=== PATIENT | female | born 1950 | race Caucasian/White ===

== ENCOUNTER 2021-11-03 22:45 | Observation (INO) ==
[2021-11-03] MEDS ORDERED: SODIUM CHLORIDE 0.9% 1000ML 1,000 ML IV SCH (23:00)
--- NOTE | 2021-11-03 23:06 | Emergency Department Note ---
Impression & Plan Diabetes mellitus with hyperosmolarity without hyperglycemic hyperosmolar nonketotic coma Admit ED Provider Note HPI: The patient is a 71-year-old female with history of hypertension, presents to the emergency department with a chief complaint of recurrent episodes of dizziness. Patient states that over the past 1 to 2 months she has had several episodes of dizziness every week. Patient states they usually occur at night. Patient states that she is unsure for how long they last usually just goes back to sleep. Patient states she is in town visiting her daughter and had another episode tonight, states that she laid down to bed around 8 PM and then around 9 PM she woke up with a sensation of dizziness. Patient states that she does get ambulatory dysfunction and ataxia with this sensation. Patient states that by time she arrived here to the ED she is feeling improved. On arrival the patient does not have any focal deficits, she has no ataxia on [id number] testing bilaterally, denies any nausea. She is noted to be hypotensive on arrival at 81/47 but is otherwise hemodynamically stable and saturating well on room air. ROS: -Neuro: Transient dizziness *10 point review systems was conducted and is otherwise negative unless stated above *Outpatient medications and allergy history reviewed PE: General: Alert, NAD HEENT: Normocephalic, atraumatic Eyes: Extraocular eye movement is intact, no scleral erythema Pulmonary: Clear to auscultation bilaterally, no wheezing Cardio: Regular rate and rhythm GI: Abdomen is soft, nontender : No suprapubic tenderness MSK: No evidence of trauma or malformation of the extremities, no edema Skin: No evidence of rash Neuro: Alert, no focal deficits, no ataxia on [id number] testing bilaterally Psychiatric: Cooperative color television console monitor: - An order was placed for continuous cardiac monitoring - Patient was noted to be in sinus rhythm with rate of 63 EKG: Rate: 65 Rhythm: Normal sinus rhythm Intervals: QTC 501 ms, otherwise within normal limits ST changes: No ST elevation Time: 2300 Medical Decision Making: Patient presented to the emergency department with an episode of dizziness. Patient tells me this has been happening intermittently for about the past month or possibly more. Patient's daughter at the bedside states that she used her glucometer on her mother this evening when she was complaining of dizziness and the blood sugar reading was "high". Patient does not have any reported history of diabetes. Patient does not have any focal deficits on arrival, IV was established, lab work obtained, lab work does show evidence of a hyperosmolar hyperglycemic nonketotic state, blood sugars approximately 760, pseudohyponatremia at 124. Potassium is 3.1, oral and IV repletion are ordered. Patient does have a slight elevation in her creatinine at 1.57, unknown baseline, patient is here visiting her daughter from out of town. CT imaging of the head was obtained that per my interpretation shows no evidence of any obvious intracranial abnormality. Stat rad radiology read is currently pending at the time of admission. Patient's mentation is clear. I discussed all the above findings with the patient and her daughter at the bedside, they are in agreement for admission, insulin drip was ordered at 0.1U/kg/hr without bolus, will plan to start insulin drip when serum potassium is at least 3.3, patient is in for agreement for admission and she was admitted in stable condition. * CRITICAL CARE TIME: 45 min -Stabilization of HHNK with blood sugar of 759 requiring initiation of insulin drip for stabilization, time spent at the bedside, interpretation of diagnostic studies, discussion with other physicians and arrangement of admission Diagnosis: 1. Hyperosmolar hyperglycemic nonketotic state 2. Dizziness 3. Elevated creatinine Disposition: Admission Preet Pérez DO Emergency Medicine Past Med/Surg History Medical History (Updated 11/04/21 @ 00:28 by Mauricio Mulligan MD) Hypertension Social History Smoking Status: Never smoker Preferred Language: Malay Feels Safe at Home: Yes Allergies Allergies Allergy/AdvReac Type Severity Reaction Status Date / Time Sulfa (Sulfonamide Allergy Unknown HAPPENED Verified 11/03/21 23:53 Antibiotics) A CHILD Home Meds Home Medications Medication Instructions Recorded Confirmed albuterol sulfate 90 mcg/actuation 2 puff INHALATION DIRECTED PRN 11/03/21 11/03/21 aerosol inhaler (Ventolin HFA) citalopram 40 mg tablet (Celexa) 40 mg PO DAILY 11/03/21 11/03/21 docusate sodium 100 mg capsule 100 mg PO BID PRN 11/03/21 11/03/21 (Colace) famotidine 40 mg tablet (Pepcid) 40 mg PO HS 11/03/21 11/03/21 fluticasone propionate 110 1 puff INHALATION BID PRN 11/03/21 11/03/21 mcg/actuation HFA aerosol inhaler (Flovent HFA) fluticasone propionate 50 2 spray INTRANASAL DAILY PRN 11/03/21 11/03/21 mcg/actuation nasal spray,suspension gabapentin 300 mg capsule 300 mg PO TID 11/03/21 11/03/21 losartan 50 mg-hydrochlorothiazide 1 tab PO DAILY 11/03/21 11/03/21 12.5 mg tablet metoprolol tartrate 50 mg tablet 50 mg PO BID 11/03/21 11/03/21 prednisone 10 mg tablet 10 mg PO DAILY PRN 11/03/21 11/03/21 rosuvastatin 20 mg tablet 20 mg PO DAILY 11/03/21 11/03/21 tizanidine 4 mg tablet 4 mg PO Q8H PRN 11/03/21 11/03/21 Results & Data (ED) Vital Signs Vital Signs - 24 hr 11/03/21 22:46 11/03/21 23:31 11/03/21 23:42 Temperature 35.6 C L Temperature Source Temporal Artery Scan Pulse Rate 63 Pulse Rate [Finger] 60 Pulse Rhythm [Finger] Regular Pulse Strength [Finger] Normal Respiratory Rate 20 22 Respiratory Effort / Characteristics Non-Labored Respiratory Depth Normal Blood Pressure 81/47 L Blood Pressure [Right Arm] 105/53 L Blood Pressure Mean 58 Blood Pressure Mean [Right Arm] 70 Blood Pressure Position [Right Arm] Sitting Pulse Oximetry 92 96 93 Oxygen Delivery Method Room Air Room Air Room Air Sepsis Recent Fever Within 48 Hours No Sepsis New/Unexplained Change in Mental Status Yes Sepsis Action Taken by Nursing No Action Required Laboratory Data Result diagrams: 11/03/21 23:09 11/03/21 23:09 Lab Results 11/03/21 11/03/21 11/03/21 Range/Units 22:52 23:09 23:09 WBC 9.58 (4.8-10.8) K/uL RBC 4.65 (4.2-5.4) M/uL Hgb 13.0 (12.0-16.0) g/dL Hct 40.0 (37-47) % MCV 86.0 (80-100) fL MCH 28.0 (25-34) pg MCHC 32.5 (32-36) g/dL RDW Std Deviation 45.3 (36.4-46.3) fL RDW Coeff of Amrit 14.5 (11.5-14.5) % Plt Count 332 (130-400) K/uL MPV 11.3 H (7.4-10.4) fL Immature Gran % (Auto) 0.3 % Neut % (Auto) 77.5 % Lymph % (Auto) 13.5 % [place] % (Auto) 6.9 % Eos % (Auto) 1.6 % Baso % (Auto) 0.2 % Neut # (Auto) 7.43 H (1.4-6.5) K/uL Lymph # (Auto) 1.29 (1.2-3.4) K/uL [place] # (Auto) 0.66 H (0.11-0.59) K/uL Eos # (Auto) 0.15 (0-0.5) K/uL Baso # (Auto) 0.02 (0-0.2) K/uL Immature Gran # (Auto) 0.03 H (0.00-0.02) K/uL PT 10.0 (9.0-12.0) Seconds INR 0.9 (0.9-1.1) APTT 25.7 (21.0-31.0) Seconds PTT Ratio 0.9 Sodium (136-145) mmol/L Potassium (3.5-5.1) mmol/L Chloride (98-107) mmol/L Carbon Dioxide (21-32) mmol/L Anion Gap (3-11) BUN (6-23) mg/dl Creatinine (0.6-1.2) mg/dl Est Cr Clr Drug Dosing ml/min Est GFR ( Amer) ml/min Est GFR (Non-Af Amer) ml/min BUN/Creatinine Ratio (10-20) Glucose (70-99(Fasting)) mg/dl POC Glucose > 600 H* (70-99) mg/dl Calcium (8.5-10.1) mg/dl Total Bilirubin (0.2-1.0) mg/dl AST (13-39) U/L ALT (7-52) U/L Alkaline Phosphatase (34-104) U/L Troponin I High Sens (0-14) pg/ml Total Protein (6.0-8.3) gm/dl Albumin (3.4-5.0) gm/dl Globulin (2.5-4.0) gm/dl Albumin/Globulin Ratio (0.9-2) 11/03/21 Range/Units 23:09 WBC (4.8-10.8) K/uL RBC (4.2-5.4) M/uL Hgb (12.0-16.0) g/dL Hct (37-47) % MCV (80-100) fL MCH (25-34) pg MCHC (32-36) g/dL RDW Std Deviation (36.4-46.3) fL RDW Coeff of Amrit (11.5-14.5) % Plt Count (130-400) K/uL MPV (7.4-10.4) fL Immature Gran % (Auto) % Neut % (Auto) % Lymph % (Auto) % [place] % (Auto) % Eos % (Auto) % Baso % (Auto) % Neut # (Auto) (1.4-6.5) K/uL Lymph # (Auto) (1.2-3.4) K/uL [place] # (Auto) (0.11-0.59) K/uL Eos # (Auto) (0-0.5) K/uL Baso # (Auto) (0-0.2) K/uL Immature Gran # (Auto) (0.00-0.02) K/uL PT (9.0-12.0) Seconds INR (0.9-1.1) APTT (21.0-31.0) Seconds PTT Ratio Sodium 124 L (136-145) mmol/L Potassium 3.1 L (3.5-5.1) mmol/L Chloride 82 L (98-107) mmol/L Carbon Dioxide 31 (21-32) mmol/L Anion Gap 11 (3-11) BUN 19 (6-23) mg/dl Creatinine 1.57 H (0.6-1.2) mg/dl Est Cr Clr Drug Dosing 35.3 ml/min Est GFR ( Amer) 38.6 ml/min Est GFR (Non-Af Amer) 33.3 ml/min BUN/Creatinine Ratio 12.1 (10-20) Glucose 759 H* (70-99(Fasting)) mg/dl POC Glucose (70-99) mg/dl Calcium 8.9 (8.5-10.1) mg/dl Total Bilirubin 0.8 (0.2-1.0) mg/dl AST 27 (13-39) U/L ALT 35 (7-52) U/L Alkaline Phosphatase 71 (34-104) U/L Troponin I High Sens 5.3 (0-14) pg/ml Total Protein 6.6 (6.0-8.3) gm/dl Albumin 3.9 (3.4-5.0) gm/dl Globulin 2.7 (2.5-4.0) gm/dl Albumin/Globulin Ratio 1.4 (0.9-2) Administered Medications Discontinued Medications Sodium Chloride (Nss 1000ml) 1,000 mls @ 999 mls/hr IV .Q1H1M MARION Stop: 11/04/21 00:00 Last Infusion: 11/04/21 00:20 Dose: 0 mls/hr Documented by: [id number] Admin: 11/03/21 23:12 Dose: 999 mls/hr Documented by: [id number] Discharge Plan Visit Data Chief Complaint: Dizziness Stated Complaint: DIZZY ED Provider: Preet Pérez Discharge Problem: Diabetes mellitus with hyperosmolarity without hyperglycemic hyperosmolar nonketotic coma Patient Disposition: Admitted As Inpatient Forms Stand Alone Forms: [facility] Prescriptions Prescriptions: No Action prednisone 10 mg Tablet 10 mg PO DAILY PRN (Reason: ARTHRITIS FLARE UPS) RF: 0 citalopram [Celexa] 40 mg Tablet 40 mg PO DAILY RF: 0 tizanidine 4 mg Tablet 4 mg PO Q8H PRN (Reason: MUSCLE SPASMS) RF: 0 famotidine [Pepcid] 40 mg Tablet 40 mg PO HS RF: 0 metoprolol tartrate 50 mg Tablet 50 mg PO BID RF: 0 docusate sodium [Colace] 100 mg Capsule 100 mg PO BID PRN (Reason: Constipation) RF: 0 gabapentin 300 mg Capsule 300 mg PO TID RF: 0 albuterol sulfate [Ventolin HFA] 90 mcg/actuation Hfa Aerosol Inhaler 2 puff INHALATION DIRECTED PRN (Reason: Shortness Of Breath Or Wheezing) RF: 0 losartan-hydrochlorothiazide 50-12.5 mg Tablet 1 tab PO DAILY RF: 0 fluticasone propionate [Flonase] 50 mcg/actuation [place],Suspension 2 spray INTRANASAL DAILY PRN (Reason: Congestion) RF: 0 fluticasone propionate [Flovent HFA] 110 mcg/actuation Hfa Aerosol Inhaler 1 puff INHALATION BID PRN (Reason: Shortness Of Breath Or Wheezing) RF: 0 rosuvastatin 20 mg Tablet 20 mg PO DAILY RF: 0 Referrals Referrals: PCP,NO [Primary Care Provider] -
[2021-11-03 23:25] LABS: Basophils # (auto) 0.02 K/uL (0-0.2); Basophils % (auto) 0.2 %; Eosinophils # (auto) 0.15 K/uL (0-0.5); Eosinophils % (auto) 1.6 %; Immature Granulocytes # (auto) 0.03 K/uL (0.00-0.02); Immature Granulocytes % (auto) 0.3 %; Lymphocytes # (auto) 1.29 K/uL (1.2-3.4); Lymphocytes % (auto) 13.5 %; Mean Corpuscular Hgb Conc 32.5 g/dL (32-36); Mean Platelet Volume 11.3 fL (7.4-10.4); Monocytes # (auto) 0.66 K/uL (0.11-0.59); Monocytes % (auto) 6.9 %; Neutrophils # (auto) 7.43 K/uL (1.4-6.5); Neutrophils % (auto) 77.5 %; Platelet Count 332 K/uL (130-400); RDW Coefficient of Variation 14.5 % (11.5-14.5); RDW Standard Deviation 45.3 fL (36.4-46.3); Red Blood Count 4.65 M/uL (4.2-5.4); White Blood Count 9.58 K/uL (4.8-10.8)
[2021-11-03 23:36] LABS: INR 0.9 (0.9-1.1); Partial Thromboplastin Ratio 0.9; Partial Thromboplastin Time 25.7 Seconds (21.0-31.0)
[2021-11-04] LABS: Albumin Globulin Ratio 1.4 (0.9-2); Albumin Level 3.9 gm/dl (3.4-5.0); BUN Creatinine Ratio 12.1 (10-20); Bilirubin,Total 0.8 mg/dl (0.2-1.0); Calcium 8.9 mg/dl (8.5-10.1); Creatinine Clr Calc Pharmacy 35.3 ml/min; Est GFR (African American) 38.6 ml/min; Est GFR (Non-African American) 33.3 ml/min; Globulin 2.7 gm/dl (2.5-4.0); Potassium 3.1 mmol/L (3.5-5.1); Total Protein 6.6 gm/dl (6.0-8.3); Troponin I High Sensitivity 5.3 pg/ml (0-14)
[2021-11-04] MEDS ORDERED: GLUCAGON FOR INJ 1 MG VIAL SQ PRN (00:02)
[2021-11-04] MEDS ORDERED: CARBOHYDRATES FOR HYPOGLYCEMIA PO PRN (00:02)
[2021-11-04] MEDS ORDERED: STAT INSULIN DRIP STA (00:02)
[2021-11-04] MEDS ORDERED: GLUCOSE 10 TABS/TUBE PO PRN (00:02)
[2021-11-04] MEDS ORDERED: DEXTROSE 50% 50 ML SYRINGE IV PRN (00:02)
[2021-11-04] MEDS ORDERED: GLUCOSE 40% GEL 15 GM TUBE PO PRN (00:02)
[2021-11-04] MEDS ORDERED: INSULIN REGULAR 250 UNITS in SODIUM CHLORIDE 0.9% 247.5 ML IV SCH (00:15)
[2021-11-04] MEDS ORDERED: POTASSIUM CHLORIDE CRTAB 20 MEQ TABCR PO STA ×2 (00:22→00:29)
--- NOTE | 2021-11-04 00:28 | History & Physical Report ---
Date of Service November 04, 2021 Assessment & Plan (1) Diabetes mellitus with hyperosmolarity without hyperglycemic hyperosmolar nonketotic coma: Plan: With blood sugar as high as 760 in the ER. No anion gap. Brand new diagnosis for her. - Insulin gtt ordered in the ER; waiting until K+ > 3.3. Repletion ordered, will recheck in 2 hours. - Aggressive IV fluids with electrolyte repletion as needed - Glycemic pharmacy consulted - supervisor maple products consulted - A1c in AM (2) Acute kidney failure: Plan: Presumed with admission Cr at 1.6. Assume some element of pre-renal due to dehydration. No hx of CKD per patient. - Aggressive IV fluids as above - Hold home losartan/HCTZ - Monitor Cr (3) Hyponatremia: Plan: Pseudohyponatremia from hyperglycemia. Corrected Na is 135. - Monitor (4) Hypertension: Plan: BP in the ER was 105/55. - Hold home losartan/HCTZ - Continue home metoprolol - Monitor BP (5) Fibromyalgia: Plan: - Continue SSRI (6) Neuropathy: Plan: Idiopathic neuropathy (though possible diabetic neuropathy given new diagnosis?). Has had EMG in the past with some Carpal Tunnel diagnosed. - Continue home gabapentin (7) Arthritis: Plan: Unknown arthritis. Has small papules on fingers as well as inflamed nail beds. Has been tested for RA and lupus per patient and daughter. - Has not used the prednisone in weeks per patient; had been on prior steroid taper before going to see a air compressor mechanic. - Tylenol PRN (8) GERD (gastroesophageal reflux disease): Plan: - Continue famotidine (9) Asthma: Plan: No wheezing on exam today. - Continue home maintenance inhaler - Albuterol PRN (10) Hyperlipidemia: Plan: - Continue statin (11) DVT prophylaxis: Plan: Heparin 5,000 units SQ BID Full code per patient History of Present Illness Primary Care Provider: NO PCP 71yo F w/ hx of HTN & arthritis who presents with hyperglycemia. She reports that she has been feeling dizzy overnight for about 1-2 months. Her PCP has been changing multiple medications on her. She had an additional BP medication added (her losartan/HCTZ), increased gabapentin for her neuropathy, and also changed her SSRI for her fibromyalgia. She figured all the medication changes were causing the dizziness because it mostly happened at night after she had taken her evening medications. This evening, she had a particularly severe episode. She is visiting her daughter from [place] who checked her blood pressure, and found it to be quite low (~100/55). She then checked the patient's blood sugar with her glucometer and it read "High." Given these results, the patient and daughter came to the ER. The patient reports some additional nocturia, but denies much additional thirst. She denies vision changes. She notes some occasional clammy feeling, but otherwise denies fever. She reports some diffuse, mild abdominal pain and nausea at times, but no vomiting. No shortness of breath, but does have a chronic dry cough that is attributed to her GERD. Allergies Allergy/AdvReac Type Severity Reaction Status Date / Time Sulfa (Sulfonamide Allergy Unknown HAPPENED Verified 11/03/21 23:53 Antibiotics) A CHILD Home Medications Medication Instructions Recorded Confirmed Type albuterol sulfate 90 mcg/actuation 2 puff INHALATION DIRECTED PRN 11/03/21 11/03/21 History aerosol inhaler (Ventolin HFA) citalopram 40 mg tablet (Celexa) 40 mg PO DAILY 11/03/21 11/03/21 History docusate sodium 100 mg capsule 100 mg PO BID PRN 11/03/21 11/03/21 History (Colace) famotidine 40 mg tablet (Pepcid) 40 mg PO HS 11/03/21 11/03/21 History fluticasone propionate 110 1 puff INHALATION BID PRN 11/03/21 11/03/21 History mcg/actuation HFA aerosol inhaler (Flovent HFA) fluticasone propionate 50 2 spray INTRANASAL DAILY PRN 11/03/21 11/03/21 History mcg/actuation nasal spray,suspension gabapentin 300 mg capsule 300 mg PO TID 11/03/21 11/03/21 History losartan 50 mg-hydrochlorothiazide 1 tab PO DAILY 11/03/21 11/03/21 History 12.5 mg tablet metoprolol tartrate 50 mg tablet 50 mg PO BID 11/03/21 11/03/21 History prednisone 10 mg tablet 10 mg PO DAILY PRN 11/03/21 11/03/21 History rosuvastatin 20 mg tablet 20 mg PO DAILY 11/03/21 11/03/21 History tizanidine 4 mg tablet 4 mg PO Q8H PRN 11/03/21 11/03/21 History Past Med/Surg History Medical History Arthritis Asthma Fibromyalgia GERD (gastroesophageal reflux disease) Hyperlipidemia Hypertension Neuropathy Social History Smoking Status: Never smoker Preferred Language: Cape Verdean Feels Safe at Home: Yes Review of Systems Review of Systems: All systems reviewed & are unremarkable except as noted in HPI & below Physical Exam Constitutional: WD/WN, vitals as above Eyes: EOM intact bilaterally; no conjunctival abnormality ENMT: external ear and nose normal, oropharynx normal Neck: trachea midline, no thyromegaly normal visual inspection Respiratory: normal respiratory effort, lungs clear to auscultation no respiratory distress Cardiovascular: RRR, no murmur, no edema Gastrointestinal (Abdomen): Inspection/Auscultation: abdomen normal to inspection; abdomen not distended Percussion/Palpation: abdomen soft; abdomen nontender, no guarding and abdomen not rigid Musculoskeletal: no cyanosis or clubbing, extremities motor strength 5/5 Skin: no rashes, warm and dry Neurologic: moves all extremities and awake Psychiatric: Orientation: alert, oriented to person and cooperative Results & Data Results & Data ([facility]) Vital Signs (Past 12 Hours) Vital Signs Temp Pulse Pulse Resp BP BP Pulse Ox 11/03/21 23:42 60 22 105/53 L 93 11/03/21 23:31 96 11/03/21 22:46 35.6 C L 63 20 81/47 L 92 Code Status & VTE Plan VTE Prophylaxis Plan VTE Prophylaxis will be ordered: Yes PG Care Time/CCT Total # of Minutes Spent Total Time Spent with Patient: Total time spent is greater than 50% in coordination of care (as documented) at patient's floor/unit and/or counseling patient: Coding Level of Care Code 48439 Initial Inpt Care Lvl 3 Diagnoses Diabetes mellitus with hyperosmolarity without hyperglycemic hyperosmolar nonketotic coma E11.00 Hypertension I10 Acute kidney failure N17.9 DVT prophylaxis Z29.9 Hyponatremia E87.1 Fibromyalgia M79.7 Arthritis M19.90 GERD (gastroesophageal reflux disease) K21.9 Neuropathy G62.9 Asthma J45.909 Hyperlipidemia E78.5
[2021-11-04] MEDS: NSS + 20MEQ KCL 20 MEQ/1,000 ML BAG IV SCH ×3 (00:39→16:45)
[2021-11-04 01:03] LABS: Appearance Urine Clear (Clear); Bacteria Urine Automated Negative (Negative); Bilirubin Urine Negative (Negative); Blood Urine Trace (Negative); Color Urine Yellow; Epithelial Cell Urine Auto >30 /lpf (0-5); Glucose Urine UA 3+ (Negative); Ketones Urine Trace (Negative); Leukocyte Esterase Urine Negative (Negative); Nitrite Urine Negative (Negative); Protein Urine 1+ (Negative); RBC Urine Automated 0-4 /hpf (0-4); Specific Gravity Urine 1.027 (1.000-1.030); Urobilinogen Urine Negative (Negative)
[2021-11-04 01:32] LABS: Renal Epithelial Cells Urine 0-5 /lpf (0-5)
[2021-11-04] MEDS ORDERED: SODIUM CHLORIDE 0.9% 1000ML 1,000 ML IV SCH (03:17)
[2021-11-04] MEDS ORDERED: PHARMACY GLYCEMIC MGMT CONSULT PRN (03:17)
[2021-11-04] MEDS ORDERED: ACETAMINOPHEN 325 MG TAB PO PRN (03:17)
[2021-11-04] MEDS ORDERED: ALBUTEROL HFA 8 GM INHALER INH PRN (03:17)
[2021-11-04] MEDS ORDERED: tiZANidine HCL 4 MG TABLET PO PRN (03:17)
[2021-11-04] MEDS ORDERED: ONDANSETRON INJ 2 MG/ML 2 ML VIAL IV PRN (03:17)
[2021-11-04] MEDS ORDERED: DOCUSATE SODIUM 100 MG CAP PO PRN (03:17)
[2021-11-04] MEDS: POTASSIUM CHLORIDE / WTR 10 MEQ/100 ML PLCT IV SCH ×5 (04:02→15:20)
[2021-11-04] MEDS ORDERED: INSULIN ASPART PER UNIT SC ONE (06:30)
[2021-11-04 06:56] LABS: Hematocrit (blood only) 38.1 % (37-47); Hemoglobin 12.7 g/dL (12.0-16.0); Mean Corpuscular Hemoglobin 28.6 pg (25-34); Mean Corpuscular Hgb Conc 33.3 g/dL (32-36); Mean Corpuscular Volume 85.8 fL (80-100); Mean Platelet Volume 10.6 fL (7.4-10.4); Platelet Count 284 K/uL (130-400); RDW Coefficient of Variation 14.1 % (11.5-14.5); RDW Standard Deviation 44.3 fL (36.4-46.3); Red Blood Count 4.44 M/uL (4.2-5.4); White Blood Count 6.61 K/uL (4.8-10.8)
[2021-11-04 07:27] LABS: BUN Creatinine Ratio 11.4 (10-20); Calcium 8.4 mg/dl (8.5-10.1); Creatinine Clr Calc Pharmacy 41.7 ml/min; Est GFR (African American) 47.6 ml/min; Est GFR (Non-African American) 41.1 ml/min; Magnesium 2.2 mg/dl (1.7-2.4); Potassium 3.7 mmol/L (3.5-5.1)
--- NOTE | 2021-11-04 07:29 | XRay Report ---
XR chest 1V portable CLINICAL HISTORY: dizzy COMPARISON STUDY: No previous studies for comparison. FINDINGS: Lung volumes are normal. Lungs are clear. There is no pneumothorax or pleural effusion. Car diac size is at the upper limits of normal. Mediastinal contours are normal. There is no evidence for pulmonary edema. IMPRESSION: No acute cardiopulmonary findings. ACT 112: Negative or not required by law. Electronically signed by: Jacek Hauser M.D. 11/04/2021 7:27 AM
--- NOTE | 2021-11-04 07:40 | Hospitalist Progress Note ---
Date of Service November 04, 2021 Assessment & Plan (1) Diabetes mellitus with hyperosmolarity without hyperglycemic hyperosmolar nonketotic coma: Plan: With blood sugar as high as 760 in the ER. No anion gap. hgb A1c 10.9 Pharmacy Glycemic control - certified lactation educator consulted (2) Acute kidney failure: Plan: Presumed with admission Cr at 1.6. - Aggressive IV fluids as above - Hold home losartan/HCTZ (3) Hyponatremia: Plan: Pseudohyponatremia from hyperglycemia. Corrected Na is 135. (4) Hypertension: Plan: BP in the ER was 105/55. - Continue to Hold home losartan/HCTZ - Continue home metoprolol (5) Fibromyalgia: Plan: - Continue SSRI (6) Neuropathy: Plan: Idiopathic neuropathy (though possible diabetic neuropathy given new diagnosis?). Has had EMG in the past with some Carpal Tunnel diagnosed. - Continue home gabapentin (7) Arthritis: Plan: Unknown arthritis. Has small papules on fingers as well as inflamed nail beds. Has been tested for RA and lupus per patient and daughter. - Has not used the prednisone in weeks per patient; had been on prior steroid taper before going to see a flight follower. - symptoms controlled with Tylenol PRN (8) GERD (gastroesophageal reflux disease): Plan: - Continue famotidine (9) Asthma: Plan: No wheezing on exam today. - Continue home maintenance inhaler - Albuterol PRN (10) Hyperlipidemia: Plan: - Continue statin (11) DVT prophylaxis: Plan: Heparin 5,000 units SQ BID Full code per patient Admission and Anticipated Discharge Date Admission Date: November 04, 2021 Subjective Pt is doing well, now coming down off insulin gtt, will transition to basal bolus insulin, no other issues at present Review of Systems Review of Systems: Mild distress and fatigue no headache, no visual changes no speech or swallowing issues no chest pain, pressure or palpitations no shortness of breath, cough or wheezes no abdominal pain, nausea or vomiting, diarrhea or constipation no dysuria, hematuria or frequency no focal joint pain or swelling no back pain, CVA tenderness or radicular pain no bruising, bleeding or rashes no focal signs of weakness or numbness or altered sensation no complaints of anxiety or depression.. Physical Exam Physical Exam: The patient appeared well nourished and normally developed. Vital signs as documented. Head exam is normocephalic atraumatic Neck is without JVD, thyromegaly, or carotid bruits. Lungs are clear to auscultation, no focal loss of breath sounds Cardiac exam, Rhythm is regular.. No murmurs, rubs or gallops. Abdominal exam reveals normal bowel sounds, soft non tender, no masses Extremities are nonedematous and both pedal pulses are present Neurologic exam is alert and oriented, no focal loss of strength or sensation Skin is without bruises or rashes Psychologically is without concerns for anxiety or depression.. Results & Data Results & Data ([facility]) Vital Signs (Past 12 Hours) Vital Signs Temp Pulse Pulse Resp BP BP BP 11/04/21 04:00 98.2 F 59 L 18 154/72 H 11/04/21 02:31 98.2 F 60 61 18 142/71 H 11/04/21 01:35 61 18 136/72 11/03/21 23:42 60 22 105/53 L 11/03/21 23:31 11/03/21 22:46 96.1 F L 63 20 81/47 L Pulse Ox 11/04/21 04:00 94 11/04/21 02:31 95 11/04/21 01:35 93 11/03/21 23:42 93 11/03/21 23:31 96 11/03/21 22:46 92 PG Care Time/CCT Total # of Minutes Spent Total Time Spent with Patient: Total time spent is greater than 50% in coordination of care (as documented) at patient's floor/unit and/or counseling patient: Coding Level of Care Code 42455 Subseq Hosp Care Lvl 2 Diagnoses Diabetes mellitus with hyperosmolarity without hyperglycemic hyperosmolar nonketotic coma E11.00 Acute kidney failure N17.9 Hyponatremia E87.1 Hypertension I10 Fibromyalgia M79.7 Neuropathy G62.9 Arthritis M19.90 GERD (gastroesophageal reflux disease) K21.9 Asthma J45.909 Hyperlipidemia E78.5 DVT prophylaxis Z29.9
--- NOTE | 2021-11-04 07:53 | CT Scan Report ---
CT OF THE HEAD WITHOUT CONTRAST CLINICAL HISTORY: dizzy COMPARISON STUDY: No previous studies for comparison. CT DOSE: 537.48 mGy.cm TECHNIQUE: Helical axial images of the head were obtained without IV contrast. Automated exposure con trol was utilized for the study. A dose lowering technique was utilized adhering to the principles o f ALARA. FINDINGS: No acute intracranial hemorrhage, midline shift or mass effect is present. White matter hyp odensity suggests small vessel disease. The ventricular system is unremarkable. The basal cisterns ar e patent. No extra-axial collections are present. There are no findings to suggest acute dural sinus thrombosis or acute territorial infarct. No significant calvarial abnormalities are present. There is mucosal thickening of the right sphenoid sinus. Minimal secretions within the left sphenoid sinus. IMPRESSION: No acute intracranial findings. ACT 112: Negative or not required by law. Electronically signed by: Jacek Hauser M.D. 11/04/2021 7:50 AM
[2021-11-04 08:46] LABS: Estimated Average Glucose 266 mg/dl; Hemoglobin A1C 10.9 % (4.5-5.6)
[2021-11-04] MEDS ORDERED: GABAPENTIN 300 MG CAP PO SCH ×2 (09:00→21:00)
[2021-11-04] MEDS: INSULIN ASPART PER UNIT SC SCH ×4 (09:19→21:45)
[2021-11-04] MEDS: CITALOPRAM 40 MG TAB PO SCH (09:21)
[2021-11-04] MEDS: METOPROLOL TARTRATE 50 MG TAB PO SCH ×2 (09:21→21:39)
[2021-11-04] MEDS: ROSUVASTATIN CALCIUM 20 MG TAB PO SCH (09:24)
[2021-11-04] MEDS: HEPARIN SOD 5,000 UNIT/0.5 ML VIAL SQ SCH ×2 (09:26→21:40)
--- NOTE | 2021-11-04 09:26 | Electrocardiogram Report ---
Test Reason : Blood Pressure : / mmHG Vent. Rate : 063 BPM Atrial Rate : 063 BPM P-R Int : 152 ms QRS Dur : 080 ms QT Int : 490 ms P-R-T Axes : 038 -11 043 degrees QTc Int : 501 ms Normal sinus rhythm Low voltage QRS Poor R wave progression, consider anterior [place] vs. lead placement vs. LVH Diffuse Minor Nonspecific T wave abnormality Abnormal ECG No previous ECGs available Confirmed by Herson Spears ([id number]) on 11/04/2021 9:26:04 AM Referred By: REFERRED SELF Confirmed By:Herson Spears
[2021-11-04 11:22] LABS: Calcium 8.9 mg/dl (8.5-10.1); Creatinine Clr Calc Pharmacy 43.3 ml/min; Est GFR (African American) 49.9 ml/min; Potassium 3.4 mmol/L (3.5-5.1)
[2021-11-04] MEDS: LANTUS PER UNIT CHARGE SQ SCH (12:06)
[2021-11-04] MEDS ORDERED: POTASSIUM CHLORIDE 10 MEQ / 100ML WTR IV STA (12:33)
--- NOTE | 2021-11-04 12:42 | Pharmacy Report ---
Pharmacy Glycemic Short Note 2 - Date of Service November 04, 2021 - Glycemic Short BSG Results (Last 24 hours): 11/03/21 11/03/21 11/04/21 22:52 23:09 00:43 Glucose 759 H* POC Glucose > 600 H* > 600 H* 11/04/21 11/04/21 11/04/21 02:13 04:16 04:18 Glucose POC Glucose > 600 H* 577 H* 484 H* 11/04/21 11/04/21 11/04/21 06:43 07:36 07:37 Glucose 397 H* POC Glucose 376 H* 371 H* 11/04/21 11/04/21 11/04/21 08:38 09:48 10:49 Glucose POC Glucose 324 H* 326 H* 245 H 11/04/21 11/04/21 10:51 11:46 Glucose 233 H POC Glucose 202 H 11/04/21 11/04/21 11/04/21 13:11 13:47 14:41 POC Glucose 178 H 159 H 113 H OUTPATIENT ANTIDIABETIC REGIMEN: * none * A1c 10.9% ASSESSMENT: * 71 year old female admitted with dizziness, hyperglycemia, new diagnosis DM. No anion gap. Started on insulin drip this morning once K up to 3.7. * K back down to 3.4 at 1100, repleting IV + PO. * Insulin drip running at 4.2 units/hr, patient eating type 2 DM diet * Blood sugars at goal last 3 hours, Dr Grayson would like to transition to SQ * Patient to see CDE today for new dx education and hopes for discharge tomorrow morning PLAN FOR INPATIENT GLYCEMIC CONTROL: * Insulin drip protocol, goal range 110-180mg/dl * blood sugar at goal x 3 hours, Discontinue now * Basal insulin * Lantus 40 units SQ daily, started this AM * Lantus 20 units SQ HS for BSG > 200mg/dl tonight only * Bolus insulin * NovoLog per scale ACHS or Q6hrs while NPO and overnight at 0000, 0400 * Goal Range: Low 110 mg/dL - High 140 mg/dL * Correction Factor: 15 mg/dL/unit * Nutritional / Prandial insulin per carb ratio of 1 unit per 5 grams CHO consumed
[2021-11-04] MEDS: POTASSIUM CHLORIDE CRTAB 20 MEQ TABCR PO SCH ×2 (13:14→21:45)
[2021-11-04] MEDS ORDERED: LANTUS PER UNIT CHARGE SQ ONE (21:00)
[2021-11-04] MEDS ORDERED: FAMOTIDINE 40 MG TABLET PO SCH (21:00)
[2021-11-04] MEDS: FAMOTIDINE 40 MG TABLET PO SCH (21:39)
[2021-11-05] MEDS: INSULIN ASPART PER UNIT SC SCH ×4 (00:11→12:28)
[2021-11-05] MEDS: NSS + 20MEQ KCL 20 MEQ/1,000 ML BAG IV SCH ×2 (00:15→10:17)
[2021-11-05 08:37] LABS: BUN Creatinine Ratio 10.6 (10-20); Calcium 7.6 mg/dl (8.5-10.1); Creatinine Clr Calc Pharmacy 49.7 ml/min; Est GFR (African American) 57.4 ml/min; Est GFR (Non-African American) 49.6 ml/min; Phosphorus 2.2 mg/dl (2.5-4.9)
[2021-11-05] MEDS: HEPARIN SOD 5,000 UNIT/0.5 ML VIAL SQ SCH (08:46)
[2021-11-05] MEDS: LANTUS PER UNIT CHARGE SQ SCH (08:50)
[2021-11-05] MEDS: CITALOPRAM 40 MG TAB PO SCH (08:51)
[2021-11-05] MEDS: METOPROLOL TARTRATE 50 MG TAB PO SCH (08:51)
[2021-11-05] MEDS: ROSUVASTATIN CALCIUM 20 MG TAB PO SCH (08:52)
[2021-11-05] MEDS: FAMOTIDINE 40 MG TABLET PO SCH (08:52)
[2021-11-05] MEDS: POTASSIUM CHLORIDE CRTAB 20 MEQ TABCR PO SCH (08:55)
--- NOTE | 2021-11-05 13:44 | Discharge Summary ---
Date of Service November 05, 2021 Admission HPI Per Admitting Provider 71yo F w/ hx of HTN & arthritis who presents with hyperglycemia. She reports that she has been feeling dizzy overnight for about 1-2 months. Her PCP has been changing multiple medications on her. She had an additional BP medication added (her losartan/HCTZ), increased gabapentin for her neuropathy, and also changed her SSRI for her fibromyalgia. She figured all the medication changes were causing the dizziness because it mostly happened at night after she had taken her evening medications. This evening, she had a particularly severe episode. She is visiting her daughter from [place] who checked her blood pressure, and found it to be quite low (~100/55). She then checked the patient's blood sugar with her glucometer and it read "High." Given these results, the patient and daughter came to the ER. The patient reports some additional nocturia, but denies much additional thirst. She denies vision changes. She notes some occasional clammy feeling, but otherwise denies fever. She reports some diffuse, mild abdominal pain and nausea at times, but no vomiting. No shortness of breath, but does have a chronic dry cough that is attributed to her GERD. Principal Diagnosis new onset diabetes Discharge Exam The patient appeared stable Vital signs as documented. Lungs are clear to auscultation and appear unlabored Cardiac exam, Rhythm is regular.. No murmurs, rubs or gallops. Abdominal exam reveals normal bowel sounds, soft non tender, no masses Extremities are nonedematous and both pedal pulses are normal. Neurologic exam is alert and oriented, no focal loss of strength or sensation Skin is without bruises or rashes Psychologically is without concerns for anxiety or depression. Discharge Data Allergies Allergy/AdvReac Type Severity Reaction Status Date / Time Sulfa (Sulfonamide Allergy Unknown HAPPENED Verified 11/03/21 23:53 Antibiotics) A CHILD Consultations 11/04/21 00:18 ED Decision to Admit Stat Ordered Studies 11/03/21 22:54 CT head/brain wo con Urgent Hospital Course (1) Diabetes mellitus with hyperosmolarity without hyperglycemic hyperosmolar nonketotic coma: With blood sugar as high as 760 in the ER. No anion gap. hgb A1c 10.9 - diabetic educator feels pt is doing well enough to go home Daily lantus 40 U sc insulin aspartate sliding scale goal 110-140, corretion 15 carb ratio of 5 Patient was educated and instructed to see her primary care physician, bay stocker, and consider podiatry care if she has persistent neuropathy for avoidance of diabetic foot infections. (2) Acute kidney failure: REsolved resume home losartan/HCTZ (3) Hyponatremia: Pseudohyponatremia from hyperglycemia. Corrected Na is 135. (4) Hypertension: BP in the ER was 105/55. - losartan/HCTZ also renoprotective - Continue home metoprolol (5) Fibromyalgia: - Continue SSRI (6) Neuropathy: Idiopathic neuropathy (though possible diabetic neuropathy given new diagnosis?). Has had EMG in the past with some Carpal Tunnel diagnosed. - Continue home gabapentin (7) Arthritis: encouraged to stop prednisone and to continue to see a steel tier. - symptoms controlled with Tylenol PRN (8) GERD (gastroesophageal reflux disease): - Continue famotidine (9) Asthma: stable (10) Hyperlipidemia: - Continue statin Total Time Total Time Spent Total Time Spent (In Minutes): It required greater than 30 minutes to prepare this patient for discharge Discharge Plan Discharge Items Patient Disposition: Home - Self-Care Reason For Visit: HYPERGLYCEMIA Discharge Diagnosis: new onset insulin requiring diabetes Activity: Resume your previous activity Non-emergency contact: Primary Care Provider Call non-emergency contact if: your symptoms worsen Follow-up/Referrals: Shahzad Sinclair MD [Outside Practitioners] - 11/11/21 10:25 am (Hospital follow up with primary care with [facility], located at [facility] Diet: Carb Consistent or DM2 Addtl Attending Provider Instructions: you have been diagnosed with diabetes we have sent labs to help determine if you maybe a candidate for pills or other treatments outside of insulin for you future treatment. It is important that you have good follow up for you diabetic care, be sure not to skip meals and have some 'quick" sugar available with you in case your blood sugar drops. If you find you have high blood sugar readings on 2 sequential checks during the day, or you feel poorly please seek medical attention. Pending Studies at Discharge: Yes (references for insulin resistance ) Stand-Alone Forms: My [employer], Smoking Cessation Medications and DC Order Prescriptions: New insulin glargine [Lantus Solostar U-100 Insulin] 100 unit/mL (3 mL) insulin pen 40 unit subcut QAM Qty: 15 RF: 6 insulin aspart U-100 100 unit/mL (3 mL) insulin pen 1 sliding scale dose subcut USEASDIRECTD Qty: 15 RF: 4 (DME) Accu-Chek Guide test strips Strip See Rx Instructions .Route Qty: 100 RF: 0 (DME) lancets [Accu-Chek Softclix Lancets] Misc See Rx Instructions .Route Qty: 100 RF: 4 (DME) pen needle, diabetic [Easy Comfort Pen [place]] 32 gauge x 5/32" needle See Rx Instructions .Route Qty: 100 RF: 0 Continued citalopram [Celexa] 40 mg Tablet 40 mg PO DAILY RF: 0 tizanidine 4 mg Tablet 4 mg PO Q8H PRN (Reason: MUSCLE SPASMS) RF: 0 famotidine [Pepcid] 40 mg Tablet 40 mg PO HS RF: 0 metoprolol tartrate 50 mg Tablet 50 mg PO BID RF: 0 docusate sodium [Colace] 100 mg Capsule 100 mg PO BID PRN (Reason: Constipation) RF: 0 gabapentin 300 mg Capsule 300 mg PO TID RF: 0 albuterol sulfate [Ventolin HFA] 90 mcg/actuation Hfa Aerosol Inhaler 2 puff INHALATION DIRECTED PRN (Reason: Shortness Of Breath Or Wheezing) RF: 0 losartan-hydrochlorothiazide 50-12.5 mg Tablet 1 tab PO DAILY RF: 0 fluticasone propionate [Flonase] 50 mcg/actuation [place],Suspension 2 spray INTRANASAL DAILY PRN (Reason: Congestion) RF: 0 fluticasone propionate [Flovent HFA] 110 mcg/actuation Hfa Aerosol Inhaler 1 puff INHALATION BID PRN (Reason: Shortness Of Breath Or Wheezing) RF: 0 rosuvastatin 20 mg Tablet 20 mg PO DAILY RF: 0 Discontinued prednisone 10 mg Tablet 10 mg PO DAILY PRN (Reason: ARTHRITIS FLARE UPS) RF: 0 Discharge Orders: Discharge Order (Routine); Ordered 11/05/21 Ordered By: Dev Grayson Admission Data Admit Date/Time: 11/04/21 00:21 Attending Provider: Dev Grayson Admit Provider: Mauricio Mulligan Primary Care Provider: PCP,NO Other Providers: Mauricio Mulligan Other Interventions: Discharge Summary Assessment (RN) Last Done: 11/05/21 13:15 Coding Level of Care Code D/C DAY MANAGEMENT >30 MINS Diagnoses Diabetes mellitus with hyperosmolarity without hyperglycemic hyperosmolar nonketotic coma E11.00 Acute kidney failure N17.9 Hyponatremia E87.1 Hypertension I10 Fibromyalgia M79.7 Neuropathy G62.9 Arthritis M19.90 GERD (gastroesophageal reflux disease) K21.9 Asthma J45.909 Hyperlipidemia E78.5
== END 2021-11-05 15:35 | disposition home or self-care (01) | DRG 638 ==
LOC: ED 22:45 → INTOOBSV 11-04 00:21 → 2N 11-04 00:21 → SUATTDRO 11-04 00:21 → 2N 11-04 01:40